=== PATIENT | male | born 1995 | race Caucasian/White ===

== ENCOUNTER 2017-01-12 20:28 | Emergency (ER) | payer SELFPAY ==
[~2017-01-12 20:28] MED LIST: HEROIN
[2017-01-12] MEDS ORDERED: NO MEDICATIONS (20:29)
== END 2017-01-12 21:21 | disposition home or self-care (01) ==
LOC: SED 20:28
DX: E86.0 Dehydration (principal); F19.10 Other psychoactive substance abuse, uncomplicated; R41.82 Altered mental status, unspecified; F17.200 Nicotine dependence, unspecified, uncomplicated
CPT/HCPCS: 82947; 99283